=== PATIENT | male | born 1990 | race Hispanic/Latino ===

== ENCOUNTER → 2019-09-30 | Day surgery (SDC) | payer BC ==
[~2019-09-30] MED LIST: BUPIVACAINE HCL 0.5% 10ML MPF VIAL INJ ONE; FENTANYL CITRATE/PF 100MCG/2 ML INJ ONE; IOPAMIDOL 200 MG/ML 20 ML VIAL IT ONE; LIDOCAINE HCL 1% LOCAL INJ 20 ML VIAL ONE; MIDAZOLAM HCL 2 MG/2 ML VIAL ONE; PROPOFOL IV EMULSION 10 MG/ML 20 ML VIAL ONE; TRIAMCINOLONE ACET 40 MG/ML VIAL ONE
[2019-09-30 08:10] VITALS: BP 128/80
--- NOTE | 2019-09-30 08:33 | Operative Report ---
DATE OF PROCEDURE: 09/30/2019 SURGEON: Gary Clements MD PREOPERATIVE DIAGNOSIS: Left hip femoral acetabular impingement. POSTOPERATIVE DIAGNOSIS: Left hip femoral acetabular impingement. PROCEDURE: Fluoroscopic-guided corticosteroid injection of the left hip. INDICATIONS: The patient is a 29-year-old gentleman with a long history of left hip pain. He localizes this to the groin. Clinic exam and x-rays are suggestive of femoral acetabular impingement. We planned on a diagnostic injection into the left hip. The risks and benefits were explained. He stated he understood and wished to proceed. PROCEDURE IN DETAIL: The patient was brought to the operating room and given a MAC anesthetic. A C-arm image intensifier was used to assist in placing a spinal needle into the hip joint. A small amount of radiopaque dye was used to confirm intra-articular placement. A mixture of 40 mg of Depo-Medrol and 9 mL of 0.5% Marcaine were injected into the hip joint. Dilution of the intra-articular dye was noted. The needle was retrieved and a Band-Aid was applied. He was transported to the recovery room in stable condition. Gary Clements MD DR/KATHLEEN /[id number]
== END | disposition home or self-care (01) ==
LOC: OR 06:05
PROVIDERS: ATTEND Specialist
DX: M25.852 Other specified joint disorders, left hip (principal); Z01.812 Encounter for preprocedural laboratory examination; Z11.59 Encounter for screening for other viral diseases
CPT/HCPCS: 20610; 77002; J2250; J2704; J3010; J3301; Q9967; U0002; 76000; J2001

== ENCOUNTER → 2019-10-31 | Outpatient (CLI) | payer BC ==
[~2019-10-31] MED LIST changes: -BUPIVACAINE HCL 0.5% 10ML MPF VIAL INJ ONE; -FENTANYL CITRATE/PF 100MCG/2 ML INJ ONE; +GADOBENATE DIMEGLUMINE 1 ML IV ONE; -IOPAMIDOL 200 MG/ML 20 ML VIAL IT ONE; +IOPAMIDOL 300 MG/ML 15ML VIAL IT ONE; -LIDOCAINE HCL 1% LOCAL INJ 20 ML VIAL ONE; -MIDAZOLAM HCL 2 MG/2 ML VIAL ONE; -PROPOFOL IV EMULSION 10 MG/ML 20 ML VIAL ONE; -TRIAMCINOLONE ACET 40 MG/ML VIAL ONE
--- NOTE | 2019-10-31 12:51 | Diagnostic Imaging Report ---
MRI of the left hip with contrast. History: Hip pain. Femoral acetabular impingement. Decreased range of motion. Pain not responding to conservative management. Technique: Multiplanar multisequence MRI of the hip after the administration of intra-articular gadolinium contrast material. Comparison: Arthrogram from the same day Findings: Left and right coxa vera with eytgp-[id number]-pixpwcojaz (CCD) angle approximately 105 degrees. The urinary bladder and remainder of the visualized pelvic structures are grossly unremarkable. No acute fracture, subluxation or avascular necrosis. No osseous erosion. No evidence to suggest greater trochanteric bursitis. The visualized muscles are normal in size, signal intensity and morphology. No muscle tear or abnormal muscle edema is seen. Mild degenerative arthrosis in the left hip with mild thinning of the articular cartilage at the superior lateral acetabulum and adjacent femoral head. Obliquely oriented tear at the anterior lateral labrum best seen on sagittal image 24 and 25. Degenerative subchondral cyst at the anterior inferior humeral head best seen on sagittal image 25. Small bone spur along the superior lateral left femoral head/neck junction. Gadolinium contrast material is seen filling the hip joint. The remainder of the visualized ligaments and tendons about the hip are intact. The hamstring tendons are intact. The visualized neurovascular bundles are intact. Impression: Findings consistent with mild femoral acetabular impingement with left and right coxa vera deformity and tearing of the anterior lateral labrum. Signed by: Dr. Noel Worrell M.D. on 10/31/2019 12:48 PM
--- NOTE | 2019-10-31 13:00 | Diagnostic Imaging Report ---
PROCEDURE: Fluoroscopically guided arthrogram of left hip Procedural Personnel Attending physician(s): Mauricio Bobby MD Fellow physician(s): None Resident physician(s): None Advanced practice provider(s): None Pre-procedure diagnosis: Left hip pain, concern for impingement Post-procedure diagnosis: Same Indication: Left hip pain, concern for impingement Additional clinical history: None Complications: No immediate complications. IMPRESSION: Fluoroscopically guided left hip arthrogram arthrogram PROCEDURE SUMMARY: - Fluoroscopically guided arthrogram of the left hip. - Patient to be transported to MRI PROCEDURE DETAILS: Pre-procedure Consent: Informed consent for the procedure including risks, benefits and alternatives was obtained and time-out was performed prior to the procedure. Preparation: The site was prepared and draped using maximal sterile barrier technique including cutaneous antisepsis. Anesthesia/sedation Level of anesthesia/sedation: Local 1% lidocaine Arthrogram Compounder Helper images were obtained. Following local 1% lidocaine anesthesia, a 22 gauge spinal needle was advanced to the left hip. Intra-articular positioning was confirmed with injection of 1cc Isovue contrast material. Subsequently, 12 of gadolinium arthrogram solution was administered to the joint (containing 8cc normal saline, 4cc Isovue, 0.1cc Multihance gadolinium based contrast). Radiation Dose Fluoroscopy time (minutes): 1.9 Reference air kerma (mGy): 19 Additional Details Additional description of procedure: None Equipment details: None Specimens removed: None Estimated blood loss (mL): Less than 10 Attestation Signer name: Mauricio Bobby MD I attest that I was present for the entire procedure. I reviewed the stored images and agree with the report as written. Signed by: Mauricio Bobby MD on 10/31/2019 12:57 PM
== END ==
LOC: DX 09:32
PROVIDERS: ATTEND Specialist
DX: M76.22 Iliac crest spur, left hip (principal)
CPT/HCPCS: 27093; 73722; 77002; Q9967